=== PATIENT | female | born 1995 ===

== ENCOUNTER 2017-01-10 14:31 | Emergency (ER) | payer MEDICAID ==
[2017-01-10 14:40] VITALS: RESP 18
[2017-01-10] MEDS ORDERED: Sodium Chloride 0.9% 1,000 ML IV STA (15:26)
--- NOTE | 2017-01-10 15:36 | ED PDOC ---
HPI: General Adult Time Seen by Provider: 01/10/17 15:33 Chief Complaint (Nursing): Fever Chief Complaint (Provider): FEVER History Per: Patient (21 Y/O RIGHT SIDED BACK PAIN ASSOCIATED WITH FEVER X 3 DAYS. DENIES ANY DYSURIA/URINARY FREQUENCY/HEMATURIA/VOMITING/DIARRHEA/ ABDOMINAL PAIN. LAST TOOK MOTRIN THIS MORNING AT 8AM.) Past Medical History Reviewed: Historical Data, Nursing Documentation, Vital Signs Vital Signs: Last Vital Signs Temp 99.3 F 01/10/17 17:35 Pulse 128 H 01/10/17 14:37 Resp 18 01/10/17 14:37 BP 119/65 01/10/17 14:37 Pulse Ox 100 01/10/17 15:35 - Family History Family History: States: No Known Family Hx - Home Medications Home Medications: Ambulatory Orders Medication Instructions Recorded Acetaminophen [Acetaminophen Extra 2 tab PO Q6 PRN #24 tablet 01/10/17 Strength] Ciprofloxacin [Cipro] 1 tab PO BID #14 tab 01/10/17 Ibuprofen [Motrin] 600 mg PO Q8 PRN #21 tab 01/10/17 - Allergies Allergies/Adverse Reactions: Allergies Allergy/AdvReac Type Severity Reaction Status Date / Time No Known Allergies Allergy Verified 03/16/16 21:02 Review of Systems ROS Statement: Except As Marked, All Systems Reviewed And Found Negative Constitutional: Positive for: Fever Musculoskeletal: Positive for: Back Pain Physical Exam - Reviewed Nursing Documentation Reviewed: Yes Vital Signs Reviewed: Yes - Physical Exam Appears: Positive for: Well, Non-toxic, No Acute Distress Head Exam: Positive for: ATRAUMATIC, NORMAL INSPECTION, NORMOCEPHALIC Skin: Positive for: Normal Color, Warm, DRY Eye Exam: Positive for: EOMI, Normal appearance, PERRL ENT: Positive for: Normal ENT Inspection Neck: Positive for: Normal, Painless ROM Cardiovascular/Chest: Positive for: Regular Rate, Rhythm Respiratory: Positive for: CNT, Normal Breath Sounds Gastrointestinal/Abdominal: Positive for: Normal Exam, Bowel Sounds, Soft Back: Positive for: Normal Inspection, Other (RIGHT PARALUMBAR TENDERNESS RIGHT SIDED ) Extremity: Positive for: Normal ROM Neurologic/Psych: Positive for: Alert, Oriented - Laboratory Results Result Diagrams: 01/10/17 15:46 01/10/17 15:46 - ECG O2 Sat by Pulse Oximetry: 100 - Progress ED Course And Treament: rocephin 1 gm iv x 1 dose for uti/pyelonephritis renal US; unremarkable Disposition - Clinical Impression Clinical Impression: Pyelonephritis - Patient ED Disposition Is Patient to be Admitted: No - Disposition Referrals: Martin Naranjo MD [Primary Care Provider] - Disposition: Routine/Home Disposition Time: 18:38 Condition: FAIR Prescriptions: Acetaminophen [Acetaminophen Extra Strength] 2 tab PO Q6 PRN #24 tablet PRN Reason: Fever >100.4 F Ciprofloxacin [Cipro] 1 tab PO BID #14 tab Ibuprofen [Motrin] 600 mg PO Q8 PRN #21 tab PRN Reason: Pain, Moderate (4-7) Instructions: Acute Pyelonephritis (DC) Forms: [facility] ED School/Work Excuse
[2017-01-10 15:52] LABS: SQUAMOUS EPITHIAL 7 /hpf (0-5); URINE BACTERIA MOD (<OCC); URINE BILIRUBIN NEGATIVE (NEGATIVE); URINE BLOOD SMALL (NEGATIVE); URINE CLARITY CLOUDY (Clear); URINE COLOR YELLOW (YELLOW); URINE GLUCOSE (UA) NEG (Normal); URINE LEUKOCYTE ESTERASE MOD Leu/uL (Negative); URINE NITRATE POSITIVE (NEGATIVE); URINE PROTEIN 30 mg/dL (NEGATIVE); URINE UROBILINOGEN 0.2-1.0 mg/dL (0.2-1.0)
[2017-01-10 15:53] LABS: BASO % 0.3 % (0.0-2.0); HEMOGLOBIN 10.4 g/dL (12.0-16.0); LYMPH # 0.6 K/uL (1.0-4.3); LYMPH % 5.1 % (20.0-40.0); MEAN CELL VOLUME 82.6 fl (81.0-99.0); MEAN CORPUSCULAR HEMOGLOBIN 27.5 pg (27.0-31.0); MEAN CORPUSCULAR HGB CONC 33.2 g/dL (33.0-37.0); MEAN PLATELET VOLUME 8.4 fl (7.2-11.7); MONO # 1.4 K/uL (0.0-0.8); NEUT % 82.6 % (50.0-75.0); PLATELET COUNT 224 K/uL (130-400); RED CELL DISTRIBUTION WIDTH 14.8 % (11.5-14.5)
[2017-01-10 15:59] LABS: ALB/GLOB RATIO 1.2 (1.0-2.1); ALT/SGPT 31 U/L (9-52); AST/SGOT 21 U/L (14-36); BLOOD UREA NITROGEN 9 mg/dl (7-17); CALCIUM 8.7 mg/dL (8.4-10.2); GFR AFRICAN-AMERICAN > 60; GFR NON-AFRICAN AMERICAN > 60
[2017-01-10] MEDS ORDERED: cefTRIAXone (Rocephin) 1 gm Inj IVPB ONE (15:59)
[2017-01-10] MEDS ORDERED: cefTRIAXone (Rocephin) 1 gm Inj ONE (16:33)
--- NOTE | 2017-01-10 18:22 | US ---
PROCEDURE: Ultrasound of the Kidneys HISTORY: RIGHT FLANK PAIN COMPARISON: None available. TECHNIQUE: Sonogram of the kidneys. FINDINGS: RIGHT KIDNEY: Measures: cm. Normal in size, contour and echogenicity. No stone, solid mass lesion or hydronephrosis visualized. LEFT KIDNEY: Measures: cm. Normal in size, contour and echogenicity. No stone, solid mass lesion or hydronephrosis visualized. OTHER FINDINGS: None. IMPRESSION: Unremarkable renal sonogram.
[2017-01-10 18:31] LABS: LYMPHOCYTE 5 % (20-50); MONOCYTE 7 % (0-10); NEUTROPHIL 88 % (42-75); PLATELET ESTIMATE NORMAL (NORMAL); TOTAL CELLS COUNTED 100
[2017-01-10 18:46] VITALS: BP 95/56; PULSE 90; TEMP 98.6; O2SAT 99
== END 2017-01-10 18:56 | disposition home or self-care (01) ==
LOC: H.ER 14:31
DX: N10 Acute pyelonephritis (principal)